=== PATIENT | female | born 2000 | race American Indian/Alaskan Native ===

== ENCOUNTER 2019-07-17 08:33 | Emergency (ER) | payer MEDICAID ==
[2019-07-17 09:46] LABS: Mucus,Urine FEW /HPF
[2019-07-17 09:49] LABS: HCG Qualitative,Urine Negative (Negative)
[2019-07-17 10:18] LABS: Bilirubin,Urine Negative (Negative); Color,Urine Straw (Yellow)
[2019-07-17 10:19] LABS: Blood,Urine Trace (Negative); Urobilinogen,Urine < 2.0 mg/dL (<2.0)
--- NOTE | 2019-07-17 11:13 | Emergency Department Report ---
{null, ED Female HPI - General Chief complaint: Abdominal Pain Stated complaint: PELVIC PAIN Time Seen by Provider: 07/17/19 10:49 Source: patient Mode of arrival: Ambulatory Limitations: No Limitations - History of Present Illness Initial comments: This is a 18-year-old -[place] female who presents to the emergency room with pelvic pain for 1 day. Patient reports pain is sharp constant pain. Reports pain is worse with movement. Admits urinary frequency is associated symptoms. Denies fever, chills, vaginal discharge, urinary urgency, urinary frequency, dysuria, nausea, vomiting, diarrhea, or back pain. MD Complaint: pelvic pain Onset/Timin -: days(s) Location: suprapubic Radiation: non-radiating Severity: moderate Severity scale (0 -10): 5 Quality: sharp Consistency: constant Improves with: none Worsens with: none Are you Now?: No Associated Symptoms: denies other symptoms - Related Data Sexually active: Yes Previous Rx's Medication Instructions Recorded Last Taken Type metroNIDAZOLE [Flagyl TAB] 500 mg PO Q12HR #14 tab 07/17/19 Unknown Rx Allergies Allergy/AdvReac Type Severity Reaction Status Date / Time No Known Allergies Allergy Unverified 07/17/19 08:58 ED Review of Systems ROS: Stated complaint: PELVIC PAIN Other details as noted in HPI Constitutional: denies: chills, fever Respiratory: denies: cough, shortness of breath, wheezing Cardiovascular: denies: chest pain, palpitations Gastrointestinal: abdominal pain. denies: nausea, diarrhea Genitourinary: denies: urgency, dysuria, discharge Musculoskeletal: denies: back pain, joint swelling, arthralgia Skin: denies: rash, lesions Neurological: denies: headache, weakness, paresthesias Psychiatric: denies: anxiety, depression ED Past Medical Hx - Past Medical History Previous Medical History?: No - Surgical History Past Surgical History?: No - Social History Smoking Status: Never Smoker Substance Use Type: None - Medications Home Medications: Home Medications Medication Instructions Recorded Confirmed Last Taken Type metroNIDAZOLE [Flagyl TAB] 500 mg PO Q12HR #14 tab 07/17/19 Unknown Rx ED Physical Exam - General Limitations: No Limitations General appearance: alert, in no apparent distress - Respiratory Respiratory exam: Present: normal lung sounds bilaterally. Absent: respiratory distress - Cardiovascular Cardiovascular Exam: Present: regular rate, normal rhythm. Absent: systolic murmur, diastolic murmur, rubs, gallop - GI/Abdominal GI/Abdominal exam: Present: soft, tenderness (Suprapubic tenderness), normal bowel sounds. Absent: distended, guarding, rebound, rigid, organomegaly, mass, bruit, hernia - External exam: Present: normal external exam Speculum exam: Present: vaginal discharge (Malodor greenish-yellow) Bi-manual exam: Present: cervical motion tendernes. Absent: adnexal tenderness, adnexal mass, uterine enlargement, uterine tenderness - Back Exam Back exam: Absent: CVA tenderness (R), CVA tenderness (L) - Neurological Exam Neurological exam: Present: alert, oriented X3, normal gait - Psychiatric Psychiatric exam: Present: normal affect, normal mood - Skin Skin exam: Present: warm, dry, intact, normal color. Absent: rash ED Course Vital Signs 07/17/19 07/17/19 08:56 14:27 Temperature 98.9 F 98.1 F Pulse Rate 107 H 100 H Respiratory 18 18 Rate Blood Pressure 122/78 Blood Pressure 132/71 [Left] O2 Sat by Pulse 99 100 Oximetry ED Medical Decision Making - Lab Data Lab Results 07/17/19 Range/Units 09:30 Urine Color Straw (Yellow) Urine Turbidity Hazy (Clear) Urine pH 5.0 (5.0-7.0) Ur Specific [place] 1.030 (1.003-1.030) Urine Protein 30 mg/dl (Negative) mg/dL Urine Glucose (UA) Negative (Negative) mg/dL Urine Ketones Negative (Negative) mg/dL Urine Blood Trace (Negative) Urine Nitrite Negative (Negative) Ur Reducing Substances Not Reportable Urine Bilirubin Negative (Negative) Urine Ictotest Not Reportable Urine Urobilinogen < 2.0 (<2.0) mg/dL Ur Leukocyte Esterase Negative (Negative) Urine WBC (Auto) 4.0 (0.0-6.0) /HPF Urine RBC (Auto) 3.0 (0.0-6.0) /HPF U Epithel Cells (Auto) 7.0 (0-13.0) /HPF Urine Mucus Few /HPF Urine HCG, Qual Negative (Negative) - Medical Decision Making This is a 18-year-old -[place] female that presents to the emergency room with pelvic pain for 1 day. Vitals are stable and patient in no acute distress. Work-up: Urinalysis, urine hCG, wet prep, gonorrhea/chlamydia, and pelvic exam. There was cervical motion tenderness on pelvic exam, malodorous greenish-yellow discharge. Wet prep positive for clue cells, negative yeast and trichomonas. Urinalysis and urine hCG within normal limits. Gonorrhea chlamydia pending. Patient empirically treated with azithromycin and Rocephin. Start metronidazole 500 mg p.o. twice daily x7 days for acute cervicitis. Referral to gynecology and primary care for continued care. Patient discharged home stable. Critical care attestation.: If time is entered above; I have spent that time in minutes in the direct care of this critically ill patient, excluding procedure time. ED Disposition Clinical Impression: Pelvic pain, Acute cervicitis, Bacterial vaginitis Disposition: TO HOME OR SELFCARE Is pt being admited?: No Condition: Stable Instructions: Bacterial Vaginosis (ED), Cervicitis (ED), Abdominal Pain (ED) Additional Instructions: Continue safe sexual intercourse. Follow up with Primary Care Provider, application security developer, or health department. I have provided a list of doctors for you to follow-up wit below 1 referral section. Prescriptions: metroNIDAZOLE [Flagyl TAB] 500 mg PO Q12HR #14 tab Referrals: JORGE ALBERTO CLOUD MD [Primary Care Provider] - 3-5 Days [facility] [Outside] - 3-5 Days [facility] [Provider Group] - 3-5 Days [facility] [Provider Group] - 3-5 Days [facility] [Outside] - 3-5 Days Forms: STI Treatment and Prevention, Work/School Release Form(ED) Time of Disposition: 13:17 }
[2019-07-17] MEDS ORDERED: AZITHROMYCIN 250 MG TAB PO ONE (13:13)
[2019-07-17] MEDS: LIDOCAINE-MPF (1%) 10 MG/1 ML VIAL 5 ML INFILTRATI ONE (13:34)
[2019-07-17 14:28] VITALS: BP 132/71
== END 2019-07-17 14:54 | disposition home or self-care (01) ==
LOC: ED 08:33
DX: N72 Inflammatory disease of cervix uteri (principal); N76.0 Acute vaginitis; R10.2 Pelvic and perineal pain; Z79.899 Other long term (current) drug therapy
CPT/HCPCS: 81001; 81025; 87210; 87591; 93005; 93010; 96372; 99284; J0696